=== PATIENT | female | born 1985 | race Two or more races ===

== ENCOUNTER 2017-01-26 22:22 | Emergency (ER) | payer OTHER ==
[~2017-01-26] VITALS: Ht 160 cm; Wt 74.8 kg
[~2017-01-26 22:22] MED LIST: RYBIX ODT50 MG PO
[2017-01-27 00:10] LABS: URINE SOURCE CLEAN CATCH
[2017-01-27 00:26] LABS: URINE APPEARANCE CLEAR; URINE BILIRUBIN NEG (NEG); URINE BLOOD NEG (NEG); URINE COLOR YELLOW; URINE GLUCOSE NEG (NEG); URINE KETONE NEG (NEG); URINE LEUKOCYTE ESTERASE NEG (NEG); URINE NITRATE NEG (NEG); URINE PROTEIN NEG (NEG); URINE SPECIFIC GRAVITY 1.019 (1.003-1.035); URINE UROBILINOGEN 0.2 MG/DL (NEG)
[2017-01-27 00:32] LABS: CULTURE INDICATED? NO
== END 2017-01-27 01:51 | disposition home or self-care (01) ==
LOC: CFTX 22:22 → CED 22:22 → CFTX 23:59
PROVIDERS: Nurse Practitioner Family
DX: M54.41 Lumbago with sciatica, right side (principal)
CPT/HCPCS: 81003; 84703; 99283